=== PATIENT | male | born 1960 | race African-American/Black ===

== ENCOUNTER → 2017-01-07 | Outpatient (CLI) | payer BC | END | disposition home or self-care (01) | LOC: PCVCIMAG 13:02 | PROVIDERS: ATTEND Nuclear Medicine Nuclear Cardiology | DX: I65.23 Occlusion and stenosis of bilateral carotid arteries (principal); I70.202 Unspecified atherosclerosis of native arteries of extremities, left leg; I10 Essential (primary) hypertension; E78.00 Pure hypercholesterolemia, unspecified; E11.9 Type 2 diabetes mellitus without complications | CPT/HCPCS: 93880; 93926 ==

== ENCOUNTER → 2017-07-08 | Outpatient (CLI) | payer BC ==
--- NOTE | 2017-07-08 22:16 | PCVCIMAG ---
EXAM: LEFT LOWER EXTREMITY ARTERIAL DUPLEX INDICATION: Peripheral Arterial Disease. Leg pain. FINDINGS: Left Leg: Satisfactory arterial waveforms throughout the common/profunda/superficial femoral, popliteal, anterior tibial, peroneal, and posterior tibial arteries. No flow limiting stenosis seen. Incidental note is made of a 4.2 x 2.4 x 4.4 cm left popliteal cyst. Incidental note is also made of nonocclusive thrombus in the great saphenous vein from the level of mid thigh through the level of the mid calf. IMPRESSION: No flow limiting stenosis in the left lower extremity. Nonocclusive thrombus left great saphenous vein as detailed above. 4.4 cm left popliteal cyst. LOC:OFFICE
== END | disposition home or self-care (01) ==
LOC: PCVCIMAG 10:19
PROVIDERS: ATTEND Nuclear Medicine Nuclear Cardiology
DX: I82.4Z2 Acute embolism and thrombosis of unspecified deep veins of left distal lower extremity (principal); M71.22 Synovial cyst of popliteal space [Baker], left knee; I73.9 Peripheral vascular disease, unspecified; E11.9 Type 2 diabetes mellitus without complications; Z79.4 Long term (current) use of insulin
CPT/HCPCS: 93926

== ENCOUNTER → 2017-08-26 | Outpatient (CLI) | payer BC ==
--- NOTE | 2017-08-26 12:59 | PCVCIMAG ---
APPROVED REPORT Study performed: 08/26/2017 11:18:31 EXAM: Comprehensive 2D, Doppler, and color-flow Echocardiogram Patient Location: Echo lab Status: routine BSA: 2.53 HR: 71 bpmBP: 136/82 mmHg Rhythm: NSR Other Information Study Quality: Adequate Indications Diabetes Dyspnea Obesity 2D Dimensions LVEF(%): 73.08 (>50%) IVSd: 13.12 (7-11mm) LVDd: 49.69 mm PWd: 11.50 (7-11mm)Ascending Ao: 36.93 (22-36mm) LVDs: 28.69 (25-40mm) Left Atrium: 41.88 (27-40mm) Aortic Root: 37.42 mm LV Single Plane 4CH: 51.25 % LV Single Plane 2CH: 49.65 %Augustin's LVEF: 50.45 % Biplane EF: 49.9 % Volumes Left Atrial Volume (Systole) Single Plane 4CH: 96.92 mLSingle Plane 2CH: 104.10 mL LA ESV Index: 40.00 mL/m2 Aortic Valve AoV Peak Charan.: 1.11 m/s AO Peak Gr.: 4.89 mmHgLVOT Max P.70 mmHg LVOT Max V: 0.96 m/s Mitral Valve E/A Ratio: 2.6 MV Decel. Time: 235.52 ms MV E Max Charan.: 0.74 m/s MV A Charan.: 0.29 m/s IVRT: 86.51 ms Pulmonary Valve PV Peak Charan.: 0.77 m/sPV Peak Gr.: 2.36 mmHg Pulmonary Vein P Vein S: 0.30 m/sP Vein A: 0.35 m/s P Vein D: 0.49 m/sP Vein A Dur.: 128.0 msec P Vein S/D Ratio: 0.61 Tricuspid Valve TR Peak Charan.: 2.59 m/s TR Peak Gr.: 26.78 mmHg Left Ventricle The left ventricle is normal size. There is normal LV segmental wall motion. Mild concentric left ventricular hypertrophy. Left ventricular systolic function is normal. The left ventricular ejection fraction is within the normal range. LVEF is 50-55%. Grade II - pseudonormal filling dynamics. Right Ventricle The right ventricle is normal size. The right ventricular systolic function is normal. Atria Left atrium is mildly dilated. The right atrium size is normal. Aortic Valve The aortic valve is normal in structure. No aortic regurgitation is present. There is no aortic valvular stenosis. Mitral Valve The mitral valve is normal in structure. Trace mitral regurgitation. No evidence of mitral valve stenosis. Tricuspid Valve The tricuspid valve is normal in structure. Mild tricuspid regurgitation with a PAP of 34 mmHg. Pulmonic Valve The pulmonary valve is normal in structure. There is no pulmonic valvular regurgitation. Great Vessels The aortic root is normal in size. IVC is normal in size and collapses with >50% inspiration Pericardium There is no pericardial effusion. <Conclusion> The left ventricle is normal size. LVEF is 50-55%. Left atrium is mildly dilated. The aortic valve is normal in structure. The mitral valve is normal in structure. Trace mitral regurgitation. The tricuspid valve is normal in structure. Mild tricuspid regurgitation with a PAP of 34 mmHg. The pulmonary valve is normal in structure.
== END | disposition home or self-care (01) ==
LOC: PCVCIMAG 11:06
PROVIDERS: ATTEND Internal Medicine
DX: I08.1 Rheumatic disorders of both mitral and tricuspid valves (principal); E11.9 Type 2 diabetes mellitus without complications; E66.9 Obesity, unspecified; I10 Essential (primary) hypertension; E78.00 Pure hypercholesterolemia, unspecified; I73.9 Peripheral vascular disease, unspecified
CPT/HCPCS: 93306